=== PATIENT | female | born 1970 | race Caucasian/White ===

== ENCOUNTER 2017-03-31 10:48 | Emergency (ER) | payer OTHER ==
[2017-03-31 11:09] VITALS: BP 136/91; PULSE 81; TEMP 98.1; BMI 38.5
--- NOTE | 2017-03-31 11:49 | PDOC ---
History of Present Illness - General Stated Complaint: RT FINGER INFECTION Time Seen by Provider: 03/31/17 11:38 History Source: Patient Exam Limitations: No Limitations - History of Present Illness Initial Comments: 03/31/17 11:48 46 yr female with right thumb paronychia for one week after cutting it at work. pt has history of DM taking metformin. Past History - Past Medical History Allergies/Adverse Reactions: Allergies Allergy/AdvReac Type Severity Reaction Status Date / Time No Known Allergies Allergy Verified 03/31/17 11:05 Home Medications: Ambulatory Orders Sulfamethoxazole/Trimethoprim [Bactrim Ds Tablet] 1 each PO BID #14 tablet 03/31 COPD: No Diabetes: Yes HTN: Yes - Surgical History Abdominal Surgery: Yes (tubal ligation 01/30/12) - Immunization History Immunization Up to Date: Yes - Suicide/Smoking/Psychosocial Hx Smoking Status: No Smoking History: Never smoked Number of Cigarettes Smoked Daily: 0 Information on smoking cessation initiated: No Hx Alcohol Use: No Drug/Substance Use Hx: No Substance Use Type: None *Physical Exam - Vital Signs Last Vital Signs Temp Pulse Resp BP Pulse Ox 98.1 F 81 14 136/91 99 03/31/17 11:06 03/31/17 11:06 03/31/17 11:06 03/31/17 11:06 03/31/17 11:06 - Physical Exam General Appearance: Yes: Nourished, Appropriately Dressed HEENT: positive: EOMI, SANDRA Extremity: positive: Normal Capillary Refill, Tender, Swelling (right thumb paronychia ) Procedures - Incision and Drainage I&D Site: Right: Paronychia (thumb) Betadine cleansed: Yes Anesthesia: 1% Lidocaine Blade Size: 11 Complications: none Dressing: Yes Medical Decision Making - Medical Decision Making 03/31/17 12:14 cc: right thumb paronychia started 2 weeks ago has pain swelling and pus drainage, pt denies fever has FROM of the digit pt has DM will drain and place on oral AB *DC/Admit/Observation/Transfer Diagnosis at time of Disposition: Paronychia of finger Qualifiers: Laterality: right Qualified Code(s): L03.011 - Cellulitis of right finger - Discharge Dispostion Disposition: HOME Condition at time of disposition: Good - Prescriptions Prescriptions: Sulfamethoxazole/Trimethoprim [Bactrim Ds Tablet] 1 each PO BID #14 tablet - Referrals Referrals: Kimberly Angulo MD [Primary Care Provider] - - Patient Instructions Printed Discharge Instructions: DI for Wound Infection Additional Instructions: soak in warm soapy water 4-5 times a day for the next 2 days take the antibiotics as directed follow with your doctor in 2 days or return to ER for a wound check - Post Discharge Activity
== END 2017-03-31 12:40 | disposition home or self-care (01) ==
LOC: JERFT 10:48
PROC: 0J9J0ZZ Drainage of Right Hand Subcutaneous Tissue and Fascia, Open Approach (ICD-10-PCS; principal; 2017-03-31)
DX: L03.011 Cellulitis of right finger (principal); I10 Essential (primary) hypertension; E11.9 Type 2 diabetes mellitus without complications; Z79.84 Long term (current) use of oral hypoglycemic drugs
CPT/HCPCS: 99281-25

== ENCOUNTER 2021-01-30 22:49 | Emergency (ER) | payer OTHER ==
[~2021-01-30 22:49] MED LIST: LIDOCAINE PATCH REMOVAL MC SCH
[2021-01-30 22:57] VITALS: BP 169/77; PULSE 93; TEMP 98.7; BMI 33.4
[2021-01-30] MEDS ORDERED: LIDOCAINE 5% TOPICAL PATCH TP ONE (23:42)
[2021-01-30] MEDS ORDERED: ACETAMINOPHEN 1000 MG/100 ML VIAL IVPB ONE (23:42)
[2021-01-31 00:27] LABS: BASO % 1.1 % (0-2.0); EOS % 2.5 % (0-4.5); HEMATOCRIT 38.2 % (32.4-45.2); HEMOGLOBIN 13.2 GM/dL (10.7-15.3); MCH 29.9 pg (25.7-33.7); MCHC 34.6 g/dl (32.0-36.0); MEAN CELL VOLUME 86.4 fl (80-96); MEAN PLT VOLUME 7.5 fl (7.5-11.1); MONO % 6.6 % (3.8-10.2); NEUT % 52.8 % (42.8-82.8); PLATELET COUNT 299 10^3/uL (134-434); RBC 4.42 M/mm3 (3.60-5.2); RDW 13.3 % (11.6-15.6); WHITE BLOOD COUNT 10.8 K/mm3 (4.0-10.0)
[2021-01-31] MEDS ORDERED: LIDOCAINE 5% TOPICAL PATCH ONE (00:27)
[2021-01-31] MEDS ORDERED: ACETAMINOPHEN INJECTION 100 ML IVPB ONE (00:27)
[2021-01-31 00:44] LABS: CHLORIDE 99 mmol/L (98-107); SODIUM 133 mmol/L (136-145)
[2021-01-31 00:46] LABS: CALCIUM 8.6 mg/dL (8.5-10.1)
[2021-01-31 00:47] LABS: ALBUMIN 3.5 g/dl (3.4-5.0); ANION GAP 6 MMOL/L (8-16); BLOOD UREA NITROGEN 13.4 mg/dL (7-18); CO2 28 mmol/L (21-32)
[2021-01-31 00:50] LABS: CREATININE 0.9 mg/dL (0.55-1.3); SGOT/AST 20 U/L (15-37); SGPT/ALT 28 U/L (13-61)
[2021-01-31 00:51] LABS: BILIRUBIN,TOTAL 0.3 mg/dL (0.2-1)
[2021-01-31 00:52] LABS: TOT PROT 7.4 g/dl (6.4-8.2)
[2021-01-31 00:53] LABS: ALK PHOS 99 U/L (45-117)
[2021-01-31 01:01] LABS: GLUCOSE,RANDOM 422 mg/dL (74-106)
[2021-01-31 01:57] LABS: HCG,QUALITATIVE URINE NEGATIVE
[2021-01-31 02:04] LABS: URINE APPEARANCE CLEAR; URINE COLOR YELLOW
[2021-01-31 02:05] LABS: URINE BILIRUBIN NEGATIVE (NEGATIVE); URINE GLUCOSE (UA) >1000 (NEGATIVE)
[2021-01-31] MEDS ORDERED: INSULIN REGULAR HUMAN 100 UNITS/ML *VIAL SQ ONE (02:05)
[2021-01-31 02:06] LABS: PH,URINE 6.5 (5.0-8.0); URINE KETONE NEGATIVE (NEGATIVE); URINE PROTEIN NEGATIVE (NEGATIVE); URINE UROBILINOGEN 0.2 mg/dL (0.2-1.0)
[2021-01-31 02:07] LABS: URINE LEUK ESTERASE NEGATIVE (NEGATIVE); URINE NITRITE POSITIVE (NEGATIVE)
[2021-01-31] MEDS ORDERED: SODIUM CHLORIDE 0.9% 500 ML INFUS.BAG IV ONE (02:07)
[2021-01-31 02:25] LABS: EPI CELLS 3 /uL (0-25.1); URINE BACTERIA 4+ /uL (0-1359); URINE RBC 0 /uL (0-23.9); URINE WBC 12 /uL (0-25.8); YEAST PRESENT (NEGATIVE)
== END 2021-01-31 04:44 | disposition home or self-care (01) ==
LOC: JER 22:49
PROC: 3E033NZ Introduction of Analgesics, Hypnotics, Sedatives into Peripheral Vein, Percutaneous Approach (ICD-10-PCS; principal; 2021-01-30)
DX: N10 Acute pyelonephritis (principal); K80.20 Calculus of gallbladder without cholecystitis without obstruction
CPT/HCPCS: 36415; 71045-TC-FY; 73523-TC-FY; 74177-TC; 80053; 81003; 82550; 82962; 84484; 84703; 85025; 87086; 87186; 93005; 93010; 99285-25; C9803; J0131; Q9967; U0003; U0005

== ENCOUNTER 2021-07-03 17:55 | Emergency (ER) | payer OTHER ==
[2021-07-03 18:08] VITALS: BP 125/77; PULSE 100; TEMP 98.1; BMI 31.2
[2021-07-03] MEDS ORDERED: diazePAM 2 MG TABLET PO ONE (20:10)
[2021-07-03] MEDS ORDERED: LIDOCAINE 5% TOPICAL PATCH TP ONE (20:11)
[2021-07-03] MEDS ORDERED: diazePAM 2 MG TABLET ONE (20:15)
[2021-07-03 20:42] LABS: BASO % 0.4 % (0-2.0); EOS % 1.9 % (0-4.5); HEMATOCRIT 37.6 % (32.4-45.2); HEMOGLOBIN 12.8 GM/dL (10.7-15.3); LYMPH % 35.5 % (8-40); MEAN CELL VOLUME 85.5 fl (80-96); MEAN PLT VOLUME 7.3 fl (7.5-11.1); MONO % 5.6 % (3.8-10.2); NEUT % 56.6 % (42.8-82.8); PLATELET COUNT 338 10^3/uL (134-434); RBC 4.39 M/mm3 (3.60-5.2); RDW 12.9 % (11.6-15.6); WHITE BLOOD COUNT 10.1 K/mm3 (4.0-10.0)
[2021-07-03 20:48] LABS: EPI CELLS 5 /uL (0-25.1); HCG,QUALITATIVE URINE Negative; HYALINE CASTS 0 /uL (0-3.1); PH,URINE 5.5 (5.0-8.0); URINE APPEARANCE CLEAR; URINE BACTERIA 59 /uL (0-1359); URINE BILIRUBIN NEGATIVE (NEGATIVE); URINE COLOR YELLOW; URINE GLUCOSE (UA) 1+ (NEGATIVE); URINE KETONE NEGATIVE (NEGATIVE); URINE LEUK ESTERASE TRACE (NEGATIVE); URINE NITRITE NEGATIVE (NEGATIVE); URINE PROTEIN NEGATIVE (NEGATIVE); URINE RBC 6 /uL (0-23.9); URINE UROBILINOGEN 0.2 mg/dL (0.2-1.0); URINE WBC 20 /uL (0-25.8)
[2021-07-03 21:06] LABS: CALCIUM 9.3 mg/dL (8.5-10.1)
[2021-07-03 21:07] LABS: ALBUMIN 3.5 g/dl (3.4-5.0); BLOOD UREA NITROGEN 10.5 mg/dL (7-18)
[2021-07-03 21:10] LABS: CREATININE 0.7 mg/dL (0.55-1.3)
[2021-07-03 21:12] LABS: BILIRUBIN,TOTAL 0.3 mg/dL (0.2-1); TOT PROT 7.7 g/dl (6.4-8.2)
[2021-07-03] MEDS ORDERED: LIDOCAINE PATCH REMOVAL MC ONE (22:00)
== END 2021-07-03 22:30 ==
LOC: JER 17:55
DX: R10.2 Pelvic and perineal pain (principal)
CPT/HCPCS: 36415; 76830-TC; 80053; 81003; 82607; 84703; 85025; 99284-25

== ENCOUNTER 2021-07-15 21:22 | Emergency (ER) | payer OTHER ==
[2021-07-15 21:27] VITALS: BP 137/94; PULSE 103; TEMP 98.2; BMI 28.9
[2021-07-15 22:12] LABS: HCG,QUALITATIVE URINE Negative
[2021-07-15 22:16] LABS: BASO % 0.6 % (0-2.0); EOS % 2.1 % (0-4.5); HEMATOCRIT 37.5 % (32.4-45.2); HEMOGLOBIN 12.7 GM/dL (10.7-15.3); LYMPH % 32.8 % (8-40); MCH 28.8 pg (25.7-33.7); MCHC 33.9 g/dl (32.0-36.0); MEAN PLT VOLUME 7.6 fl (7.5-11.1); MONO % 5.7 % (3.8-10.2); NEUT % 58.8 % (42.8-82.8); PLATELET COUNT 352 10^3/uL (134-434); RBC 4.41 M/mm3 (3.60-5.2); WHITE BLOOD COUNT 10.7 K/mm3 (4.0-10.0)
[2021-07-15 22:38] LABS: ALBUMIN 3.5 g/dl (3.4-5.0); BLOOD UREA NITROGEN 13.3 mg/dL (7-18); CALCIUM 9.7 mg/dL (8.5-10.1)
[2021-07-15 22:41] LABS: CREATININE 0.8 mg/dL (0.55-1.3)
[2021-07-15 22:43] LABS: BILIRUBIN,TOTAL 0.2 mg/dL (0.2-1); TOT PROT 7.7 g/dl (6.4-8.2)
[2021-07-15 23:00] LABS: URINE APPEARANCE CLEAR; URINE BILIRUBIN NEGATIVE (NEGATIVE); URINE COLOR YELLOW; URINE GLUCOSE (UA) 1+ (NEGATIVE); URINE KETONE NEGATIVE (NEGATIVE); URINE LEUK ESTERASE NEGATIVE (NEGATIVE); URINE NITRITE NEGATIVE (NEGATIVE); URINE PROTEIN NEGATIVE (NEGATIVE); URINE UROBILINOGEN 0.2 mg/dL (0.2-1.0)
[2021-07-16] MEDS ORDERED: METHOCARBAMOL 500 MG TABLET PO ONE (00:30)
[2021-07-16] MEDS ORDERED: METHOCARBAMOL 500 MG TABLET ONE (00:31)
== END 2021-07-16 00:38 | disposition home or self-care (01) ==
LOC: JER 21:22
DX: M54.50 Low back pain, unspecified (principal)
CPT/HCPCS: 36415; 74176-TC; 80053; 81003; 84703; 85025; 87086; 99285-25

== ENCOUNTER 2021-08-13 21:13 | Emergency (ER) | payer OTHER ==
[2021-08-13 21:35] VITALS: BP 151/82; PULSE 100; TEMP 98.1; BMI 27.3
[2021-08-13] MEDS ORDERED: KETOROLAC TROMETHAMINE 30 MG/1 ML VIAL IM ONE ×2 (22:43→23:16)
[2021-08-13] MEDS ORDERED: ACETAMINOPHEN 500 MG TABLET (FP) PO ONE (23:15)
[2021-08-14] MEDS ORDERED: ACETAMINOPHEN 325 MG TABLET (FP) ONE (00:12)
[2021-08-14 00:17] LABS: BASO % 0.5 % (0-2.0); EOS % 1.8 % (0-4.5); HEMATOCRIT 35.3 % (32.4-45.2); HEMOGLOBIN 12.2 GM/dL (10.7-15.3); MCH 28.9 pg (25.7-33.7); MCHC 34.5 g/dl (32.0-36.0); MEAN CELL VOLUME 83.7 fl (80-96); MEAN PLT VOLUME 7.1 fl (7.5-11.1); MONO % 6.6 % (3.8-10.2); NEUT % 59.1 % (42.8-82.8); PLATELET COUNT 346 10^3/uL (134-434); RBC 4.21 M/mm3 (3.60-5.2); RDW 13.6 % (11.6-15.6); WHITE BLOOD COUNT 11.2 K/mm3 (4.0-10.0)
[2021-08-14 00:33] LABS: URINE APPEARANCE CLEAR; URINE BILIRUBIN NEGATIVE (NEGATIVE); URINE COLOR YELLOW; URINE GLUCOSE (UA) NEGATIVE (NEGATIVE); URINE KETONE NEGATIVE (NEGATIVE); URINE LEUK ESTERASE NEGATIVE (NEGATIVE); URINE NITRITE NEGATIVE (NEGATIVE); URINE PROTEIN NEGATIVE (NEGATIVE); URINE UROBILINOGEN 0.2 mg/dL (0.2-1.0)
[2021-08-14 00:39] LABS: ALBUMIN 3.6 g/dl (3.4-5.0); CALCIUM 9.3 mg/dL (8.5-10.1)
[2021-08-14 00:40] LABS: BLOOD UREA NITROGEN 19.5 mg/dL (7-18)
[2021-08-14 00:43] LABS: CREATININE 0.5 mg/dL (0.55-1.3)
[2021-08-14 00:44] LABS: BILIRUBIN,TOTAL 0.4 mg/dL (0.2-1); TOT PROT 7.3 g/dl (6.4-8.2)
[2021-08-14] MEDS ORDERED: KETOROLAC TROMETHAMINE 30 MG/1 ML VIAL ONE (01:11)
== END 2021-08-14 02:37 | disposition home or self-care (01) ==
LOC: JER 21:13
PROC: 3E0233Z Introduction of Anti-inflammatory into Muscle, Percutaneous Approach (ICD-10-PCS; principal; 2021-08-13)
DX: M79.604 Pain in right leg (principal)
CPT/HCPCS: 36415; 80053; 81003; 84703; 85025; 87086; 87186; 99284-25

== ENCOUNTER 2023-08-02 14:07 | Emergency (ER) | payer OTHER ==
[2023-08-02 14:45] VITALS: RESP 18; TEMP 98.2; BMI 37.6
[2023-08-02 16:17] LABS: BASO % 0.4 % (0-2.0); EOS % 2.4 % (0-4.5); HEMATOCRIT 35.5 % (32.4-45.2); HEMOGLOBIN 11.6 GM/dL (10.7-15.3); LYMPH % 25.2 % (8-40); MCH 28.5 pg (25.7-33.7); MCHC 32.7 g/dl (32.0-36.0); MEAN CELL VOLUME 87.3 fl (80-96); MONO % 6.9 % (3.8-10.2); NEUT % 65.1 % (42.8-82.8); PLATELET COUNT 309 10^3/uL (134-434); RBC 4.06 M/mm3 (3.60-5.2); RDW 13.8 % (11.6-15.6); WHITE BLOOD COUNT 11.3 K/mm3 (4.0-10.0)
[2023-08-02 16:19] LABS: PH,URINE 5.5 (5.0-8.0); URINE APPEARANCE CLEAR; URINE BILIRUBIN NEGATIVE (NEGATIVE); URINE COLOR YELLOW; URINE GLUCOSE (UA) 3+ (NEGATIVE); URINE KETONE NEGATIVE (NEGATIVE); URINE LEUK ESTERASE NEGATIVE (NEGATIVE); URINE NITRITE NEGATIVE (NEGATIVE); URINE PROTEIN NEGATIVE (NEGATIVE); URINE UROBILINOGEN 0.2 mg/dL (0.2-1.0)
[2023-08-02 16:34] LABS: POTASSIUM 4.2 mmol/L (3.5-5.1)
[2023-08-02 16:35] LABS: CALCIUM 9.7 mg/dL (8.5-10.1)
[2023-08-02 16:36] LABS: ALBUMIN 3.4 g/dl (3.4-5.0)
[2023-08-02 16:41] LABS: BILIRUBIN,TOTAL 0.4 mg/dL (0.2-1); TOT PROT 7.6 g/dl (6.4-8.2)
[2023-08-02] MEDS: SODIUM CHLORIDE 0.9% 500 ML INFUS.BAG IV ONE ×2 (18:50→20:42)
[2023-08-02] MEDS ORDERED: IBUPROFEN 400 MG TABLET (FP) PO ONE ×2 (19:18→23:07)
[2023-08-02] MEDS: IBUPROFEN 400 MG TABLET (FP) PO ONE ×2 (19:22→23:12)
[2023-08-02 22:52] VITALS: BP 108/48; PULSE 89
== END 2023-08-02 23:13 | disposition home or self-care (01) ==
LOC: JER 14:07
DX: R55 Syncope and collapse (principal); R51.9 Headache, unspecified; R61 Generalized hyperhidrosis; R42 Dizziness and giddiness; Z20.822 Contact with and (suspected) exposure to COVID-19
CPT/HCPCS: 0241U-QW; 36415; 70450-TC; 71045-TC-FY; 72125-TC; 80053; 81003; 82962; 84484; 84703; 85025; 87086; 93005; 93010; 99285-25